=== PATIENT | male | born 1985 ===

== ENCOUNTER 2022-11-18 12:55 | Outpatient (CLI) | payer OTHER ==
--- NOTE | 2022-11-19 11:07 | MRI Report ---
PROCEDURE: KNEE WO - LT INDICATIONS: KNEE PAIN TECHNIQUE: Noncontrast sagittal PD fast spin echo and T2 fast spin echo with fat saturation, sagittal 3-D gradie nt sequence with fat saturation; coronal T1 spin echo and PD fast spin echo with fat saturation, and axial PD fast spin echo with fat saturation through the knee. COMPARISON: None. FINDINGS: Image quality: Excellent. Menisci: There is intrasubstance degeneration in the posterior horn the medial meniscus. The lateral meniscus demonstrates normal morphology and internal signal. The meniscal root ligaments appear inta ct. Cruciate ligaments: The anterior and posterior cruciate ligaments appear intact. Medial structures: The medial collateral ligament appears intact. The semimembranosus tendon insert ions and meniscocapsular junction appear intact. Visualized portions of the pes anserinus tendons ap pear normal. No abnormal bursal fluid. Lateral structures: The lateral collateral ligament, long and short heads of the biceps femoris tend on appear intact. The popliteus tendon appears normal. Iliotibial band appears normal. Anterior structures: The quadriceps and patellar tendons appear intact. Patellar alignment is jonny l. No femoral trochlear dysplasia or ventral trochlear prominence. No edema in the infrapatellar fa t pad. Bones and cartilage: No bone marrow contusions or fractures. There is tricompartmental cartilage thi nning and fibrillation, most pronounced in the medial femorotibial compartment. There is a small full -thickness focal cartilage defect in the lateral femoral condyle (series 5 image 20). Joint space: There is small knee joint fluid. There is a small Cleaning's cyst. Normal appearing synov ial plicae are incidentally noted. IMPRESSION: 1. Intrasubstance degeneration of the posterior horn the medial meniscus. 2. 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 3. A small full-thickness focal cartilage defect in the lateral femoral condyle. 4. Small knee joint effusion. 5. A small Cleaning's cyst cyst. Reviewed by: Екатерина Russo MD on 11/19/2022 11:06 AM PDT Approved by: Екатерина Russo MD on 11/19/2022 11:06 AM PDT Station ID: [id number]
--- NOTE | 2022-11-19 11:15 | MRI Report ---
PROCEDURE: KNEE WO - RT INDICATIONS: KNEE PAIN TECHNIQUE: Noncontrast sagittal PD fast spin echo and T2 fast spin echo with fat saturation, sagittal 3-D gradie nt sequence with fat saturation; coronal T1 spin echo and PD fast spin echo with fat saturation, and axial PD fast spin echo with fat saturation through the knee. COMPARISON: None. FINDINGS: Image quality: Excellent. Menisci: The medial and lateral menisci demonstrate normal morphology and internal signal. The meni scal root ligaments appear intact. Cruciate ligaments: The anterior and posterior cruciate ligaments appear intact. Medial structures: The medial collateral ligament appears intact. The posterior oblique ligament, s emimembranosus tendon insertions, and oblique popliteal ligament, and meniscocapsular junction appear intact. Visualized portions of the pes anserinus tendons appear normal. No abnormal bursal fluid. Lateral structures: The lateral collateral ligament, long and short heads of the biceps femoris tend on appear intact. The popliteus tendon appears normal; the popliteofibular ligament appears intact. The posterosuperior and anteroinferior popliteomeniscal fascicles appear intact. The arcuate and fa bellofibular ligaments appear intact, around the lateral inferior geniculate artery. Iliotibial band appears normal. Anterior structures: The quadriceps and patellar tendons appear intact. Patellar alignment is jonny l. No femoral trochlear dysplasia or ventral trochlear prominence. No edema in the infrapatellar fa t pad. Bones and cartilage: No bone marrow contusions or fractures. There is focal near full-thickness cart ilage thinning and fibrillation involving the lateral femoral condyle. Joint space: There is trace knee joint fluid. There is a small Cleaning's cyst. Normal appearing synov ial plicae are incidentally noted. IMPRESSION: 1. Focal near full-thickness cartilage thinning and fibrillation involving the lateral femoral condyl e. 2. Trace knee joint effusion. 3. A small Cleaning's cyst. Reviewed by: Екатерина Russo MD on 11/19/2022 11:13 AM PDT Approved by: Екатерина Russo MD on 11/19/2022 11:13 AM PDT Station ID: [id number]
== END 2022-11-18 12:56 | disposition home or self-care (01) ==
LOC: DI 12:55
PROVIDERS: ATTEND Student in an Organized Health Care Education/Training Program
DX: M94.262 Chondromalacia, left knee (principal); M94.261 Chondromalacia, right knee; M25.462 Effusion, left knee; M25.461 Effusion, right knee; M71.22 Synovial cyst of popliteal space [Baker], left knee; M71.21 Synovial cyst of popliteal space [Baker], right knee; M23.322 Other meniscus derangements, posterior horn of medial meniscus, left knee